=== PATIENT | male | born 1975 | race Caucasian/White ===

== ENCOUNTER → 2023-05-30 | Day surgery (SDC) | payer OTHER ==
[~2023-05-30] MED LIST: BACTRIM DS 8001 TA1 PO; BUSPIRONE HCL7.5 MG PO; PERCOCET 325 MG1 TAB PO; PRAVASTATIN SOD40 MG PO; SINGULAIR10 M1 PO; ZITHROMAX250 MG PO
[2023-05-30 11:20] VITALS: BP 118/61
[2023-05-30 13:25] VITALS: BP 114/52
[2023-05-30 13:40] VITALS: BP 102/56
[2023-05-30 13:55] VITALS: BP 114/70
== END ==
LOC: SDC 05-28 12:30
PROVIDERS: ATTEND Specialist
DX: J32.0 Chronic maxillary sinusitis (principal); J45.21 Mild intermittent asthma with (acute) exacerbation; F41.9 Anxiety disorder, unspecified; Z79.899 Other long term (current) drug therapy; Z90.89 Acquired absence of other organs; Z98.890 Other specified postprocedural states; Z88.0 Allergy status to penicillin; Z88.2 Allergy status to sulfonamides